=== PATIENT | male | born 2005 | race Caucasian/White ===

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

== ENCOUNTER 2025-07-24 13:27 | Outpatient (AMB) | payer OTHER, SELFPAY ==
--- NOTE | 2025-07-24 13:30 | MHC.OFFWIV ---
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 Allergies sulfamethoxazole (From BACTRIM) Allergy (Unknown, Verified 07/24/25 13:35) RASH trimethoprim (From BACTRIM) Allergy (Unknown, Verified 07/24/25 13:35) RASH Do you need a note to return to daycare/school/sports/work: No HPI HPI Comments History of Present Illness Details History of Present Illness The patient is a 19 year old male with a past medical history of gastric sleeve surgery presenting with sharp intermittent chest/abdominal pain. - The chest pain has been intermittent over the last couple of months. - Described as sharp, localized to the upper abdominal area, and radiating to the chest. - Lasts for seconds, occurs at rest, and not associated with movement, deep breaths, shortness of breath, nausea, or vomiting. - The pain occasionally worsens when lying down and is reproducible with palpation of the area. - He denies any prior cardiac history. Denies any cardiac history in mom or dad. - Experiences acid reflux particularly after consuming soda, which is distinct from the current pain. Review of Systems - Constitutional: Denies fevers or chills - Cardiovascular: Reports intermittent, sharp, shooting abdominal pain radiation to chest, denies palpitations - Respiratory: Denies associated shortness of breath. - Gastrointestinal: Denies nausea or vomiting. Denies diarrhea - Musculoskeletal: Denies pain with movement Physical Exam General Appearance: Normal appearance, well developed. No acute distress Head: Normocephalic, atraumatic Cardiac: RRR. No M/R/G. Chest pain somewhat reproducible to palpation overlying the 8th/9th rib along the left midaxillary region Pulmonary: No respiratory distress. Speaking in full sentences. Lungs are clear. Abdomen: Soft and nontender to palpation. No guarding or rigidity Musculoskeletal: Moving all extremities spontaneously and against gravity. Mental Status: Alert and Oriented x 3 Psychiatric: Normal mood. Normal affect. [facility] Social History (Updated 10/22/20 @ 14:04 by LULY Cook) Current occupational status: student Current occupation: student 9th grade Physical Exam Vital Signs: Last Vital Signs Temp 97.9 F 07/24/25 13:32 Pulse 96 07/24/25 13:32 BP 137/83 07/24/25 13:32 Pulse Ox 99 07/24/25 13:32 Oxygen Delivery Method Room Air 07/24/25 13:32 BMI result Body Mass Index 37.2 Office Procedures EKG Details: Normal sinus rhythm. No significant ST changes noted upon personal review. No prior EKG for comparison [id number], Complete Assessment & Plan Assessment & Plan (1) Chest pain: Code(s): R07.9 - Chest pain, unspecified Qualifiers: Chest pain type: unspecified Qualified Code(s): R07.9 - Chest pain, unspecified Plan - Patient presents with intermittent left upper abdominal pain radiating to the chest pain for the last few months. Reports pain lasts just for 1-2 seconds and resolves on its own. - EKG does not show any significant findings upon personal review - Discussed possible musculoskeletal etiology as pain is somewhat reproducible to palpation along the chest wall - As symptoms have been ongoing for a few months, will also obtain chest x-ray for further evaluation - Advised patient to establish with a PCP. - In the interim, discussed monitoring when pain occurs and if he notices any aggravating or alleviating factors. - Recommended prompt medical evaluation if any worsening chest pain, persistent chest pain, or trouble breathing Patient was informed and verbally consented to the use of an ambient scribe for clinic note documentation during the visit. Orders: Orders AMB EKG-In Office 07/24/25 R07.9 - Chest pain, unspecified XR chest 2V 07/24/25 R07.9 - Chest pain, unspecified Coding Level of Care Code New Pt Level 3 (54871) Diagnoses Chest pain, unspecified type R07.9 Chest pain type: unspecified CPT Codes EKG - CPT: 04746-[id number], Complete ([id number])
[2025-07-24 13:32] VITALS: BP 137/83; PULSE 96; TEMP 36.6; O2SAT 99; BMI 37.2
--- OUTSIDE RECORDS SUMMARY | 2025-07-24 17:32 | XMS_ITS | Clinical Summary ---
Author Organization [facility] Address [address] [place] [address] Care Team Providers Care Lean Manufacturing Engineer Name Role Phone Valentine Presley MD Primary Care Provider [phone] Source Comments Please note that some or all of the patient's information could have additional privacy protections. State laws allow health care providers to render certain types of treatment to minors without parental consent. Please do not assume that this information can be shared solely by obtaining just the consent of the patient's parent/guardian. Please determine if all or part of the patient's care was rendered without parent/guardian involvement. And, if so, obtain the minor's consent prior to disclosure.[facility] Allergies Active Allergy Reactions Criticality Noted Date Comments Sulfamethoxazole-Trimethop rim 09/08/2021 Other (Food) Itching,Other (See Comments) 11/26/2021 Natalio reports itching mouth throat with - apple, julio, strawberry, kiwi, banana, bosch, grapes, watermelon, blueberries, pears, pineapple. OK if cooked, such as canned pineapple or applesauce. Seasonal 11/02/2021 Sulfa (Sulfonamide Antibiotics) 09/08/2021 Sulfamethoxazole Rash Low 06/07/2022 Trimethoprim Rash Low 06/07/2022 Medications omeprazole (PRILOSEC) 40 MG capsule 10/24/2022 Active cholecalciferol, vitamin D3, 50 mcg (2,000 unit) capsuleIndicatio ns:Vitamin D deficiency Take 1 capsule (2,000 Units) by mouth daily 30 capsule 11 01/08/2025 01/09/20 26 Active multivitamin tabletIndication s:Severe obesity due to excess calories with serious comorbidity and body mass index (BMI) greater than 99th percentile for age in pediatric patient,H/O gastric sleeve Take 1 tablet by mouth daily 30 tablet 11 01/14/2025 01/15/20 26 Active Active Problems Problem Noted Date Diagnosed Date H/O gastric sleeve 07/07/2022 Decreased strength, endurance, and mobility 10/06 NAFLD (nonalcoholic fatty liver disease) 022 Severe obesity due to excess calories with serious comorbidity and body mass index (BMI) greater than 99th percentile for age in pediatric patient 10/28/2021 Acanthosis nigricans 10/28/2021 Snoring 10/28/2021 Childhood obesity, unspecifi ed BMI, unspecified obesity type, unspecified whether serious comorbidity present 09/09/2021 Elevated liver enzymes 09/09/2021 Family History Medical History Relation Name Comments Diabetes type II Maternal Grandfather Hypertension Maternal Grandfather Hyperlipidemia Maternal Grandmother Sleep apnea Maternal Grandmother Thyroid disease Maternal Grandmother Hypertension Mother Obesity Mother Sleep apnea Mother Diabetes type II Paternal Grandfather Anesthesia problems Neg Hx Bleeding disorder Neg Hx Relation Name Status Comments Maternal Grandfather Maternal Grandmother Mother Paternal Grandfather Social History Tobacco Use Types Packs/Day Years Used Date Smoking Tobacco: Never Smokeless Tobacco: Never Tobacco Cessation:Counseling Given: Not Answered Sex and Gender Information Value Date Recorded Sex Assigned at Male 06/12/2025 1:53 PM EST Legal Sex Male 12:58 PM EST Gender Identity Not on file Sexual Orientation Not on file Last Filed Vital Signs Vital Sign Reading Time Taken Comments Blood Pressure 135/79 12/25/2024 9:38 AM EDT Pulse 75 12/25/2024 9:38 AM EDT Temperature 36.5 C (97.7 F) 11/18/2022 8:24 AM EDT Respiratory Rate 16 06/03/2022 5:35 PM EDT Oxygen Saturation 99% 06/03/2022 5:35 PM EDT Inhaled Oxygen Concentration - - Weight 109.1 kg (240 lb 8.4 oz) 01/14/2025 2:25 PM EDT Height 172 cm (5' 7.72 ) 01/14/2025 2:25 PM EDT Body Mass Index 36.88 01/14/2025 2:25 PM EDT Plan of Treatment Upcoming Encounters Date Type Department Care Team (Late st Contact Info) Description 09/26/2025 9:30 AM EST Nutrition [facility], Clinical Nutrition [address] [place] [address] 12/31/2025 10:45 AM EDT Office Visit [facility] Gastroenterology, [address] [phone] Angela Hernandez APRN [address] [place], [place] [phone] 01/20/2026 11:00 AM EDT Office Visit [facility], Weight Management [address] [address] John Ryan PA [address] [place], [place] [phone] Health Maintenance Due Date Last Done Comments DTaP/TDAP/TD VACCINES (1 - Tdap) 2012 ADOLESCENT HIV SCREENING 2018 COVID-19 Vaccine ( season) 2025 01/12/2021, 12/22/2020 INFLUENZA (#1) 2025 NIRSEVIMAB VACCINES UNDER 8 MONTHS Aged Out No longer eligible b ased on patient's age to complete this topic Medical Devices Implanted Type Area Systems Design Engineer Device Identifier Shelf Expiration Date Model / Serial / Lot Tristaple 2.0 Black Reinforced - [id number] Implanted:Qty: 1 on 06/02/2022 by Della Kenyon MD at [facility] Staple N/A: Stomach COVIDIEN 11/04/2024 [id number] XT / / [id number] Tristaple 2.0 Black Reinforced - [id number] Implanted:Qty: 1 on 06/02/2022 by Della Kenyon MD at [facility] Staple N/A: Stomach COVIDIEN 09/06/2024 [id number] XT / / [id number] Insurance [facility] [employer] PLAN [facility] MEDICAID [facility] [employer] PLAN Care Teams Lean Manufacturing Engineer Relationship Specialty Start Date End Date Valentine Presley MD [address] [place] [id number] PCP - General General Pediatrics 06/21/21
--- OUTSIDE RECORDS SUMMARY | 2025-07-24 17:32 | XMS_ITS ---
Author Name [facility] Organization Unknown History of Medication Use Medication Directions Dispensed Refills Start Date End Date Stat cholecalciferol, vitamin D3, 50 mcg (2,000 unit) capsule Take 2 capsules (4,000 Units) by mouth daily 08/15/2023 12/20/2023 active cetirizine (ZYRTEC) 10 MG tablet Take 1 tablet (10 mg) by mouth daily 12/14/2022 12/15/2023 active cetirizine (ZYRTEC) 10 MG tablet Take 1 tablet (10 mg) by mouth daily 12/14/2022 12/15/2023 active omeprazole (PRILOSEC) 40 MG capsule TAKE 1 CAPSULE BY MOUTH EVERY DAY. BREAK CAPSULE APART AND MIX WITH ANY LIQUID 10/24/2022 active omeprazole (PRILOSEC) 40 MG capsule TAKE 1 CAPSULE BY MOUTH EVERY DAY. BREAK CAPSULE APART AND MIX WITH ANY LIQUID 10/24/2022 active omeprazole (PRILOSEC) 40 MG capsule Take 1 capsule (40 mg) by mouth daily Break capsule apart and mix with any liquid 06/03/2022 07/04/2022 active food supplemt, lactose-reduced (ENSURE CLEAR) liquid Take 20 oz by mouth daily Ensure Clear, mixed mccrary flavor for 7 days 05/05/2022 05/13/2022 active liraglutide (VICTOZA 2-ERIK) 0.6 mg/0.1 mL (18 mg/3 mL) injection Inject 1.8 mg into the skin daily 03/29/2022 03/29/2022 active cholecalciferol, vitamin D3, 50 mcg (2,000 unit) capsule Take 1 capsule (2,000 Units) by mouth daily 12/27/2021 03/28/2022 active ondansetron (ZOFRAN) 4 MG tablet Take 1 tablet (4 mg) by mouth every 8 (eight) hours as needed for Nausea 12/27/2021 03/02/2022 active cholecalciferol (VITAMIN D3) 25 mcg (1,000 unit) chewable tablet Take 2 tablets (2,000 Units) by mouth daily 11/26/2021 02/25/2022 active liraglutide (VICTOZA) 0.6 mg/0.1 mL (18 mg/3 mL) injection Inject 0.6 mg into the skin daily for 7 days, THEN 1.2 mg daily for 7 days, THEN 1.8 mg daily. 11/26/2021 02/09/2022 active BD ULTRA-FINE GILBERTO PEN NEEDLE 32 gauge x Needle Use as directed up to 7 times daily. 11/26/2021 active cetirizine HCl (ZYRTEC ORAL) Take by mouth active liraglutide (VICTOZA 2-ERIK) 0.6 mg/0.1 mL (18 mg/3 mL) injection Inject 1.2 mg into the skin daily active multivitamin capsule Take 1 capsule by mouth daily active multivitamin capsule Take 1 capsule by mouth daily active multivitamin capsule Take 1 capsule by mouth daily active No known medications No known medications active Allergies Allergen Reaction Severity Comment Documented Date Source Status TRIMETHOPRIM RASH 06/07/2022 [facility] active OTHER (FOOD) OTHER (SEE COMMENTS) Serene reports itching mouth throat with - apple, julio, strawberry, kiwi, banana, bosch, grapes, watermelon, blueberries, pears, pineapple. OK if cooked, such as canned pineapple or applesauce. 11/26/2021 [facility] active SEASONAL 11/02/2021 [facility] active SULFA (SULFONAMIDE ANTIBIOTICS) 09/08/2021 [facility] active SULFAMETHOXAZOLE RASH [facility] SULFAMETHOXAZOLE-TRIM ETHOPRIM [facility] Problems Problem Status Onset Date Problem Type Date of Resolution Source Dietary counseling active EncounterDiagnosisAct [facility] H/O gastric sleeve active 2022-07-07 ProblemAct [facility] H/O gastric sleeve active 2022-07-07 ProblemAct [facility] Vitamin D deficiency active EncounterDiagnosisAct [place] NAFLD (nonalcoholic fatty liver disease) active 2021-10-28 ProblemAct [facility] Childhood obesity, unspecified BMI, unspecified obesity type, unspecified whether serious comorbidity present active 2021-09-09 ProblemAct [facility] Acanthosis nigricans active 2021-10-28 ProblemAct [facility] Decreased strength, endurance, and mobility active 2021-10-28 ProblemAct [facility] Snoring active 2021-10-28 ProblemAct [facility] Elevated liver enzymes active 2021-09-09 ProblemAct [facility] Severe obesity due to excess calories with serious comorbidity and body mass index (BMI) greater than 99th percentile for age in pediatric patient active 2021-10-28 ProblemAct [facility] Encounters Encounter Type Encounter Reason Primary Diagnosis Location Date Ambulatory Acquired absence of stomach (part of) Acquired absence of stomach (part of) [facility] ([facility] 01/28/2025 Ambulatory Morbid (severe) obesity due to excess calories Morbid (severe) obesity due to excess calories [facility] 01/14/2025 Ambulatory Fatty (change of) liver, not elsewhere classified Fatty (change of) liver, not elsewhere classified [facility] 12/25/2024 Ambulatory Vitamin D deficiency, unspecified Vitamin D deficiency, unspecified [facility] 12/20/2023 Ambulatory Obesity Obesity [facility] 08/11/2023 Ambulatory Obesity, unspecified Obesity, unspecified [facility] 07/11/2023 Ambulatory Obesity, unspecified Obesity, unspecified [facility] 07/11/[address] [facility] 01/13/[address] [facility] 11/18/[address] [facility] 11/08/[address] [facility] 11/01/[address] [facility] 07/12/[address] [facility] 07/06/[address] [facility] 06/28/[address] [facility] 06/24/[address] [facility] 06/01/[address] [facility] 05/30/[address] [facility] 05/18/[address] [facility] 05/12/[address] [facility] 05/11/[address] [facility] 05/06/[address] [facility] 05/05/[address] [facility] 05/05/[address] [facility] 04/25/[address] [facility] 03/29/[address] [facility] 03/22/[address] [facility] 03/17/[address] [facility] 03/15/[address] [facility] 03/02/[address] [facility] 02/16/[address] [facility] 02/03/[address] [facility] 02/02/[address] [facility] 12/22/[address] [facility] 12/21/[address] [facility] 12/03/[address] [facility] 11/30/[address] [facility] 11/29/[address] [facility] 11/26/[address] [facility] 11/26/[address] [facility] 09/13/2021 Care Team Organization Name Specialty Phone Email Start Date End Da te [facility] IJEOMA DENISE Primary Care 07/11/2023 [facility] ([facility] IJEOMA ROUNDS Primary Care 023 07/11/2023 [facility] IJEOMA DENISE Primary Care 11/21/2022 [facility] IJEOMA DENISE Primary Care 07/07/2022
--- OUTSIDE RECORDS SUMMARY | 2025-07-24 17:33 | XMS_ITS | Clinical Summary ---
Author Organization [facility] Address [address] [place] [address] Phone Care Team Providers Care Rehab Aide Name Role Phone Physician, No Pcp Primary Care Provider Unavaila ble Allergies Active Allergy Reactions Criticality Noted Date Comments Sulfamethoxazole-Trimethoprim Rash 2024 Sulfa (Sulfonamide Antibiotics) Rash 09/08 Medications No known medications Surgical History Surgery Date Site/Laterality Comments GASTRIC BYPASS Social History Tobacco Use Types Packs/Day Years Used Date Smoking Tobacco: Never Smokeless Tobacco: Never Tobacco Cessation:Counseling Given: Not Answered Sex and Gender Information Value Date Recorded Sex Assigned at Not on file Legal Sex Male 1:39 PM EDT Gender Identity Not on file Sexual Orientation Not on file Growth Chart Information Age Height Weight [id number] th Percentile BMI Percentile Head Circum Head Circum Percentile Date 19 years 170.2 cm (5' 7.01 ) 102 kg (225 lb) 97.85%* 2024 18 years 170.2 cm (5' 7.01 ) 102 kg (225 lb) 97.87%* 2024 18 years 170.2 cm (5' 7 ) 102 kg (225 lb) 97.88%* 2024 * [facility] (Boys, 2-20 Years) Last Filed Vital Signs Vital Sign Reading Time Taken Comments Blood Pressure 129/64 09/28/2024 3:34 PM EST Pulse 96 09/28/2024 3:34 PM EST Temperature 36.9 C (98.4 F) 09/28/2024 3:34 PM EST Respiratory Rate 18 09/28/2024 3:34 PM EST Oxygen Saturation 100% 09/28/2024 3:34 PM EST Inhaled Oxygen Concentration - - Weight 102 kg (225 lb) 10/16/2024 2:40 PM EDT Height 170.2 cm (5' 7.01 ) 10/16/2024 2:40 PM ED T Body Mass Index 35.23 10/16/2024 2:40 PM EDT Plan of Treatment Health Maintenance Due Date Last Done Comments Meningococcal B Vaccine (1 of 2 - Standard) 2021 HIV Screening 03/08/2024 Hepatitis C Screening 03/08/2024 Social Influencers of Health Screening 03/08/2024 Depression Screening 08/07/2024 Annual Well Child Visit (3-21 years old) 11/30/2024 12/01/2023, 09/09/2022, 06/08/2021, Additional history exists COVID-19 Vaccine ( - season) 2025 01/12/2021, 12/22/2020 Influenza Vaccine (#1) 2025 , 06/08/2021, 05/25/2020, Additional history exists DTaP,Tdap,and Td Vaccines (7 - Td or Tdap) 05/02/2027 05/02/2017, 12/07/2010, 01/10/2007, Additional history exists RSV Immunization Adult Patients (1 - 1-dose 75+ series) 2080 Hepatitis B Vaccines Completed 04/06/2006, 02/09/2006, 2005 HIB Vaccines Completed 01/10/2007, 03/09, 02/09/2006, Additional history exists Pneumococcal Vaccine: Pediatrics (0 to 5 Years) and At-Risk Patients (6 to 49 Years) Completed 01/10/2007, 04/06/2006, 02/09/2006, Additional history exists Hepatitis A Vaccines Completed 04/30/2007, 10/04/19 07 IPV Vaccines Completed 12/07/2010, 03/09, 02/09/2006, Additional history exists MMR Vaccines Completed 12/07/2010, 09/08, 10/04/2006 Varicella Vaccines Completed 12/07/2010, 10/04/2006 HPV Vaccines Completed 05/07/2018, 05/02/2017 Meningococcal ACWY Vaccine Completed 09/09/2022, RSV Immunization Patients Under 20 months Aged Out No longer eligible based on patient's age to complete this topic Insurance Care Teams Rehab Aide Relationship Specialty Start Date End Date Physician, No Pcp PCP - General 09/28/24
--- OUTSIDE RECORDS SUMMARY | 2025-07-24 17:33 | XMS_ITS | Encounter Summary ---
Author Organization [facility] Address [address] [place] [address] Phone Care Team Providers Care Nurse Paralegal Name Role Phone Valentine Presley MD Primary Care Provider [phone] Encounter Details Date Type Department Care Team (Late st Contact Info) Description 03/23/2017 Conversion Encounter [facility] [address] [place] [address] Social History Tobacco Use Types Packs/Day Years Used Date Smoking Tobacco: Never Comments:Never smoker Sex and Gender Information Value Date Recorded Sex Assigned at Not on file Legal Sex Male 5:09 PM EDT Gender Identity Male 11/19/2023 2:13 PM EDT Sexual Orientation Straight 09/09/2022 2: 22 PM EST documented as of this encounter Plan of Treatment Not on file documented as of this encounter Visit Diagnoses Not on filedocumented in this encounter Care Teams Nurse Paralegal Relationship Specialty Start Date End Date Valentine Presley MD [address] [place] [address] PCP - General Pediatrics 02/06/19 documented as of this encounter
--- OUTSIDE RECORDS SUMMARY | 2025-07-24 17:33 | XMS_ITS | Clinical Summary ---
Author Organization [facility] Address [address] [place] [address] Phone Care Team Providers Care Security Nurse Name Role Phone Valentine Presley MD Primary Care Provider [phone] Allergies Active Allergy Reactions Criticality Noted Date Comments Cholestatin 11/02/2021 Sulfamethoxazole Rash Low Sulfamethoxazole-Trimethoprim Hives 2021 Trimethoprim Rash Low Medications Multiple Vitamins-Minera ls (MULTIVITAMIN ADULT EXTRA C PO) Take 1 capsule by mouth daily. Active M-PAP 160 MG/5ML liquid TAKE 31.25ML BY MOUTH EVERY 6 HOURS FOR 10 DAYS 06/03/2022 Active omeprazole 40 MG capsule 07/15/2022 Active cholecalciferol 50 MCG (2000 UT) capsule Take 4,000 Units by mouth daily. 08/15/2023 Active Active Problems Problem Noted Date Diagnosed Date Phimosis 12/01/2023 Overview (12/01/2023): 12/01/2023 (age 18yr): Urology referral Assessment & Plan (12/01/2023 11:26 AM EDT): 12/01/2023 (age 18yr): Urology referral H/O gastric sleeve 07/07/2022 NAFLD (nonalcoholic fatty liver disease) 021 Overview (12/26/2024): 09/09/2022 (age 16yr 11mo): See problem of obesity for details. NAFLD with liver fibrosis. Followed closely by [facility] weight management program - Last Specialist Visit: 12/21/2023 (age 18yr): [facility] Jan is a 18 y.o. 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 Since undergoing sleeve gastrectomy in 2021 he has had a significant reduction in his BMI, which is reflected in the normalization of his liver enzymes and improved Fibroscan findings. ' Follow up 1 year. 12/25/2024 [facility] GI Fibroscan showed significant increase in fatty change. Follow up with weight managemet, continue with healthy choices. Detailed History and Chronology of care: 06/10/2021 (age 15yr 8mo): ALT 152. Likely fatty liver (NAFLD). Will check ultrasound and then refer to NAFLD clinic at [facility] or [facility]. 06/18/2021 (age 15yr 8mo): Liver U/S confirms fatty liver. Referred to NAFLD clinic today. . 09/21/2021: MR elastography shows Mean liver stiffness of 3.1 kPa consistent with Stage 1 to 2 Fibrosis. Referred to weight management by GI. 12/18/2021 (age 16yr 2mo): Normal biliary ultrasound 03/14/2022: Continues to follow with liver clinic at [facility] Assessment & Plan (09/09/2022 5:39 PM EST): 09/09/2022 (age 16yr 11mo): See problem of obesity for details. NAFLD with liver fibrosis. Followed closely by [facility] weight management program Assessment & Plan (06/18/2021 10:47 AM EST): 06/18/2021 (age 15yr 8mo): Liver U/S confirms fatty liver. Referred to NAFLD clinic today. Assessment & Plan (06/10/2021 5:22 PM EDT): 06/10/2021 (age 15yr 8mo): ALT 152. Likely fatty liver (NAFLD). Will check ultrasound and then refer to NAFLD clinic at [facility] or [facility]. 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 Detailed History and Chronology of care: 06/10/2021 (age 15yr 8mo): Insulin 50.8, nl HGB A1C. Was referred to weight management at recent well visit. Assessment & Plan (12/01/2023 12:18 PM EDT): 12/01/2023 (age 18yr): See problem of obesity for details, followed closely by [facility] weight management. Assessment & Plan (09/09/2022 5:40 PM EST): 09/09/2022 (age 16yr 11mo): See problem of obesity for details, followed closely by [facility] weight management. Borderline high cholesterol 06/10/2021 Overview (09/09/2022): 09/09/2022 (age 16yr 11mo): See problem of obesity for details. Followed closely by [facility] weight management Assessment & Plan (12/01/2023 12:18 PM EDT): 12/01/2023 (age 18yr): See problem of obesity for details. Followed closely by [facility] weight management Assessment & Plan (09/09/2022 2:13 PM EST): 09/09/2022 (age 16yr 11mo): See problem of obesity for details. Followed closely by [facility] weight management Seasonal allergic rhinitis due to pollen 021 Overview (11/03/2023): - Last Specialist Visit: 10/25/2023 DYLAN Negrete. Oral allergy syndrome, environmental allergies. Rx epipen, zyrtec, nasacort. Start immunotherapy. FU 6 months (05/2024) Assessment & Plan (12/01/2023 12:18 PM EDT): - Last Specialist Visit: 10/25/2023 DYLAN Negrete. Oral allergy syndrome, environmental allergies. Rx epipen, zyrtec, nasacort. Start immunotherapy. FU 6 months (05/2024) Assessment & Plan (12/23/2020 5:31 PM EDT): See meds. Call if they make you tired. Keep his/her bedroom dust free: 1. Wash and dry any stuffed animals or Give them a vacation in sealed plastic bags for a week 2. Use only foam pillows 3. Wash all bed linens, including bedspread, weekly 4. Avoid floor to ceiling heavy curtains. 5. Wash any curtains or blinds there 6. Try to avoid wall to wall carpeting 7. Vacuum your home weekly with a HEPA filter 8. No cats, or dogs in the room. Best to Have no cats at all in the home ): 9. Use clean air conditioners; for whole house Ac, make sure ducts are clean 10. Consider air purifiers ([employer] makes Good reasonably priced models) 11. Have child wash hands and face a lot 12. Baking soda compresses work great on Itchy eyes. Concerned about having social problem 11/13/2020 Overview (11/13/2020): 11/13/2020 (age 15yr 1mo): DCF involved Oral allergy syndrome 05/10/2019 Overview (12/01/2023): 12/01/2023 (age 18yr): : Feels like throat is closing when he eats certain foods: cherries, oranges, apples, honeydew, watermelon. - Last Specialist Visit: 10/25/2023 DYLAN Negrete. Oral allergy syndrome, environmental allergies. Rx epipen, zyrtec, nasacort. Start immunotherapy. FU 6 months (05/2024) Detailed History and Chronology of care: 06/18/19: Apt with DYLAN, could not allergy test due to insurance issues, but will return for testing. 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 05/25/2020 (age 14 yr 7 mo): pt overslept and didn't make it to the follow up appointment. 06/08/2021 (age 15yr 8mo): Will plan to reschedule to with the accordion maker. Assessment & Plan (12/01/2023 12:17 PM EDT): 12/01/2023 (age 18yr): : Feels like throat is closing when he eats certain foods: cherries, oranges, apples, honeydew, watermelon. - Last Specialist Visit: 10/25/2023 DYLAN Negrete. Oral allergy syndrome, environmental allergies. Rx epipen, zyrtec, nasacort. Start immunotherapy. FU 6 months (05/2024) Assessment & Plan (09/09/2022 4:47 PM EST): 09/09/2022 (age 16yr 11mo): Feels like throat is closing when he eats certain foods: cherries, oranges, apples, honeydew, watermelon. Initial allergy appt 05/2020, still need to follow up. Will plan to schedule. Referral placed again Assessment & Plan (06/08/2021 1:43 PM EDT): 06/08/2021 (age 15yr 8mo): Feels like throat is closing when he eats certain foods: cherries, oranges, apples, honeydew, watermelon. Initial allergy appt 05/2020, still need to follow up. Will plan to schedule. Assessment & Plan (12/23/2020 5:30 PM EDT): Avoid raw pitted fruits with skins for now. Follow up with dr. presley Assessment & Plan (05/25/2020 10:59 AM EDT): eels like throat is closing when he eats certain foods: cherries, oranges, apples, honeydew, watermelon. Refer to allergiest. 06/18/19: Apt with DYLAN, could not allergy test due to insurance issues, but will return for testing. 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 05/25/2020 (age 14 yr 7 mo): pt overslept and didn't make it to the follow up appointment. Pt to call for appt. Obesity 05/02/2017 Overview (02/05/2025): 12/01/2023 (age 18yr) - 02/05/25 Followed closly by [facility] weight management clinic. 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 S/p Bariatric surgery 05/2022. NAFLD improving. Detailed History and Chronology of care: 06/10/2021 (age 15yr 8mo): Severe obesity. Elevated ALT, hyperinsulinemia, borderline cholesterol (see individual problems) [facility] weight management not taking new pts. Mom will call [facility] and let me know how it goes. 09/21/2021: MR elastography shows Mean liver stiffness of 3.1 kPa consistent with Stage 1 to 2 Fibrosis. Referred to weight management by GI at [facility]. 11/17/2021: Sleep study normal. 11/26/2021: [facility] weight management is Starting Liraglutide injections for weight loss. 03/07/2022: Stress test normal, continues with weight management at [facility], likely will have bariatric surgery in 3-4 months. 06/02/2022: Had bariatric surgery at [facility] 12/14/2022 [facility] irina CASTRO improved - fibrosis from stage 1-2 to 0-1. Assessment & Plan (12/01/2023 12:17 PM EDT): 12/01/2023 (age 18yr): Followed closly by [facility] weight management clinic. 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 S/p Bariatric surgery 05/2022. NAFLD improving. Assessment & Plan (09/09/2022 5:39 PM EST): 09/09/2022 (age 16yr 11mo): Followed closly by [facility] weight management clinic. 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 S/p Bariatric surgery 05/2022. Assessment & Plan (06/10/2021 5:25 PM EDT): 06/10/2021 (age 15yr 8mo): Severe obesity. Elevated ALT, hyperinsulinemia, borderline cholesterol (see individual problems) [facility] weight management not taking new pts. Mom will call [facility] and let me know how it goes. Assessment & Plan (06/08/2021 1:44 PM EDT): 06/08/2021 (age 15yr 8mo): Severe obesity, referred to weight management again. Check labs. Discussed diet/exercise. Assessment & Plan (01/01/2021 12:48 PM EDT): 01/01/2021 (age 15yr 3mo): Weight is up 4 lbs since 12/23. Natalio reports stress eating related to school. He finds it hard to wake up. He reports that he is snacking but not as much as he used to. He snacks on chips. Drinks soda 2 cans per day. Over eating. Natalio plays basketball but hasn't been playing as much since the family moved to [facility]. Has opportunity to play 2 days per week. 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 He thinks he might be able to start walking. Natalio would like to go to the weight management clinic. - check labs today Assessment & Plan (12/23/2020 5:28 PM EDT): Now up to 320 lbs,please see Dr. Presley for consult for weight loss. Also will refer to Maris Villafana RD Assessment & Plan (05/25/2020 10:56 AM EDT): 05/25/2020 (age 14 yr 7 mo): BMI increasing still. 43 to 46.7. He is feeling down about about his weight, wants to get to a gym to work on it. Feeling unable to exercise during the covid 19 pandemic. Encouraged focusing on activities that are available (walking, home workouts etc) Assessment & Plan (08/22/2019 2:16 PM EST): D/w pt- did not follow through with [facility] program but would be really interested if they still do the free family membership or at least if he and dad could have a free membership I called [facility] to check on this- KT will call Y and confirm and give mom a call Assessment & Plan (05/02/2017 3:39 PM EDT): Will screen for diabetes, hypothyroid, and hyperlipidemia. Refer to weight management Resolved Problems Problem Noted Date Diagnosed Date Resolved Date Elevated blood pressure reading 01/01/2021 12/01/2023 Overview (09/09/2022): 09/09/2022 (age 16yr 11mo): BP normal today. See problem of obesity for details, followed closely by [facility] weight management. Detailed History and Chronology of care: 01/01/2021 (age 15yr 3mo): noted today, follow up 2-3 weeks. 06/08/2021 (age 15yr 8mo): High BP again today, follow up 2-3 weeks. Assessment & Plan (09/09/2022 5:40 PM EST): 09/09/2022 (age 16yr 11mo): BP normal today. See problem of obesity for details, followed closely by [facility] weight management. Assessment & Plan (01/01/2021 12:49 PM EDT): 01/01/2021 (age 15yr 3mo): noted today, follow up 2-3 weeks. Tinea versicolor 05/10/2019 05/25/2020 Overview (05/10/2019): Ketoconazole cream BID x 2 weeks. To Derm INB. Also consider pityriasis alba. Assessment & Plan (05/25/2020 10:58 AM EDT): Has had treatment x 2, both times resolved. Assessment & Plan (08/22/2019 2:18 PM EST): Had ketoconazole cream rx'ed in the past and the rash cleared- but back again now req RF- sent Advised use for 2-4 weeks Wheeze 05/07/2019 09/09/2022 Overview (05/25/2020): And chest pain with URI 12/2018. Seen in ED - CxR and EKG nl. Rx'd prednisone and albuterol at follow up here. 05/10/19: Has been fine since then 05/25/2020 (age 14 yr 7 mo): no issues with wheeze since that time. Will resolved problem today. Assessment & Plan (05/25/2020 10:57 AM EDT): Wheeze with chest pain with URI 12/2018. Seen in ED - CxR and EKG nl. Rx'd prednisone and albuterol at follow up here. 05/10/19: Has been fine since then 05/25/2020 (age 14 yr 7 mo): no issues with wheeze since that time. Encounters Date Type Department Care Team Description 05/14/2025 Telephone [facility] [address] [place] [address] Valentine Presley MD Nutrition Form from Last 3 Months Immunizations Immunization Administration Dates Next Due COVID-19 Pfizer, monovalent, 12+ years 1,12/22/2020 DTaP 12/07/2010, 7,04/06/2006,02/09,2005 HPV Vaccine 9 Valent 05/07/2018,05/02/2017 Hep A, ped/adol 04/30/2007,10/04/2006 Hep B, ped/adol 04/06/2006,02/09/2006,2005 HiB 01/10/2007,04/06/2006,02/09/2006 Hib (PRP-T) 2005 IPV 12/07/2010, 6,02/09/2006,12/01 Influenza, injectable, quadr ivalent, preservative free 09/09/2022,06/08/2021,05/25/2020,05/10,05/07/2018,04/27/2016,04/17/2015 ,10/10/2008 Influenza, injectable, trivalent 10/15/2009,08/2008 Influenza, injectable,josefa valent, preservative free, pediatric 04/30/2007,08/08/2006,07/06/2006 MMR 12/07/2010,10/04/2006 MMRV 10/04/2006 Meningococcal Conj (Menactra) MCV4P 05/02/2017 Meningococcal Conj (Menquadfi) [id number] 09/09/2022 Pneumococcal Conjugate 01/10/2007,2005,02/09/2006,12/01 Tdap 05/02/2017 Varicella 12/07/2010 Family History Medical History Relation Name Comments Asthma Brother Diabetes Maternal Grandfather Rick Heart disease (Premature) Maternal Grandfather Rick Hyperlipidemia Maternal Grandfather Rick Asthma Maternal Grandmother Relation Name Status Comments Brother Maternal Grandfather Rick Alive Maternal Grandmother Mother Ada Alive Social History Tobacco Use Types Packs/Day Years Used Date Smoking Tobacco: Never Smokeless Tobacco: Never Comments:Never smoker Hunger/Food Answer Date Recorded In the last 12 months, did y ou or your family ever eat less than you felt you should because there wasn't enough money for food? No 12/01/2023 Stable Housing Answer Date Recorded Are you worried that in the next 2 months you may not have stable housing? No 12/01/2023 Transportation Concerns Answer Date Rec orded In the last 12 months, have you or your family ever had to go without healthcare because you didn't have a way to get there? No 12/01/2023 Hazards in Home Answer Date Recorded Think about the place you li ve. Do you have problems with any of the following? Pests (mice or roaches), mold, no/not working smoke detectors, water leaks, no window guards. No 2023 Financing Utilities Answer Date Recorde d In the last 12 months, has t he electric, gas, oil, or water company threatened to shut off your services in your home? No 12/01/2023 Safety at Home Answer Date Recorded Are you or your family worried about feeling saf e in your home? No 12/01/2023 Outside Support Answer Date Recorded Do you feel that you need mo re support from other people or programs to help you care for yourself or your family? No 12/01/2023 Understanding Health Concerns Answer Da te Recorded Do you need help understandi ng your or your child's healthcare needs (diagnosis, medications, plan, etc.)? No 12/01/2023 Financing Health Concerns Answer Date R ecorded In the last 12 months, was t here a time when your child needed to see a doctor or get medications or supplies but could not because of cost? No 12/01/2023 Missing School or Work Answer Date Wisam rded Did you or your child miss s chool or work because of a health problem that could have been avoided? No 12/01/2023 Child Education Answer Date Recorded Do you have concerns about y our/your child's learning or behavior in school, preschool, or daycare? No 12/01/2023 Sex and Gender Information Value Date Recorded Sex Assigned at Not on file Legal Sex Male 5:09 PM EDT Gender Identity Male 11/19/2023 2:13 PM EDT Sexual Orientation Straight 09/09/2022 2: 22 PM EST Last Filed Vital Signs Vital Sign Reading Time Taken Comments Blood Pressure 117/74 12/01/2023 10:48 AM EDT Pulse 87 12/01/2023 10:48 AM EDT Temperature 36.7 C (98 F) 08/16/2023 3:04 PM EST Respiratory Rate 20 05/10/2019 3:08 PM EDT Oxygen Saturation 100% 07/20/2022 4:13 PM EST Inhaled Oxygen Concentration - - Weight 95 kg (209 lb 6.4 oz) 12/01/2023 10:48 AM EDT Height 172 cm (5' 7.72 ) 12/01/2023 10:48 AM EDT Body Mass Index 32.11 12/01/2023 10:48 AM EDT Body Mass Index Percentile 96.74% 12/01/2023 10: 48 AM EDT Growth Chart: CDC (Boys, 2-2 0 Years) Plan of Treatment Health Maintenance Due Date Last Done Comments Men B Vaccine (1 of 2 - Standard) 2021 Influenza Vaccines (#1) 2025 09/09/19 23, 06/08/2021, 05/25/2020, Additional history exists COVID-19 Vaccine (3 - 2024-2 6 season) 2025 01/12/2021, 12/22/2020 DTaP,Tdap,and Td Vaccines (7 - Td or Tdap) 05/02/2027 05/02/2017, 12/07/2010, 01/10/2007, Additional history exists Hepatitis B Vaccines Completed 04/06/2006, 02/09/2006, 2005 HIB Vaccines Completed 01/10/2007, 03/09, 02/09/2006, Additional history exists Pneumococcal Vaccine Completed 01/10/2007, 04/06/2006, 02/09/2006, Additional history exists Hepatitis A Vaccines Completed 04/30/2007, 10/04/19 07 IPV Vaccines Completed 12/07/2010, 03/09, 02/09/2006, Additional history exists MMR Vaccines Completed 12/07/2010, 09/08, 10/04/2006 Varicella Vaccines Completed 12/07/2010, 10/04/2006 HPV Vaccines Completed 05/07/2018, 05/02/2017 Meningococcal Vaccine Completed 09/09/2022, 017 Insurance [facility] NON P[facility] Care Teams Security Nurse Relationship Specialty Start Date End Date Valentine Presley MD [address] [place] [id number] PCP - General Pediatrics 02/06/19
--- OUTSIDE RECORDS SUMMARY | 2025-07-24 17:33 | XMS_ITS | Encounter Summary ---
Author Organization [facility] Address [address] [place], [place] [address] Phone Care Team Providers Care Base Wad Operator Adjuster Name Role Phone Valentine Presley MD Primary Care Provider [phone] Encounter Details Date Type Department Care Team (Late st Contact Info) Description 2016 Documentation [facility] Family Medicine [address] [place] [address] Family Medicine, Physician [address] [place], [place] [id number] Social History Tobacco Use Types Packs/Day Years [...] on filedocumented in this encounter Care Teams Base Wad Operator Adjuster Relationship Specialty Start Date End Date Valentine Presley MD [address] [place] [address] PCP - General Pediatrics 02/06/19 documented as of this encounter
== END 2025-07-24 14:30 | disposition home or self-care (01) ==
LOC: HO.HMCWIS 13:27
PROVIDERS: PCP Physician Assistant Medical; Visit Provider Family Medicine
DX: R07.9 Chest pain, unspecified (principal)

== ENCOUNTER → 2025-07-24 13:27 | Outpatient (BNVA) | payer OTHER, SELFPAY | PROVIDERS: PCP Student in an Organized Health Care Education/Training Program; Visit Provider Family Medicine | DX: R07.9 Chest pain, unspecified (principal); R10.9 Unspecified abdominal pain; Z98.84 Bariatric surgery status | CPT/HCPCS: 93005 ==

== ENCOUNTER 2025-07-25 11:02 | Outpatient (AMB) | payer OTHER, SELFPAY ==
--- NOTE | 2025-07-25 11:05 | A.OFFPC_ITS ---
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 Accompanied by: Self / Same As Patient Allergies sulfamethoxazole (From BACTRIM) Allergy (Unknown, Verified 07/25/25 11:26) RASH trimethoprim (From BACTRIM) Allergy (Unknown, Verified 07/25/25 11:26) RASH Medication List - Last Reconciled 07/25/25 by Tracey Leon PA-C ibuprofen 600 mg PO Q8H PRN loratadine 10 mg PO DAILY PRN multivitamin with folic acid 400 mcg (Daily-Alfredito (with folic acid)) 1 tab PO DAILY triamcinolone acetonide 2 sprays intranasal DAILY Tobacco use date assessed: 07/25/25 Dental Screening Dental Screen Date: 07/25/25 Did you have a dental visit in the last 12 months?: No Did you have a dental problem in the last 6 months where you did not have access to dental care?: No HPI HPI Comments History of Present Illness Details History of Present Illness The patient is a 19 year old male presenting for a new patient visit, annual physical examination and in addition for evaluation of left upper quadrant abdominal pain. He reports intermittent, random, and fast pain in the left upper quadrant that shoots up toward his chest but not his shoulder, which has been occurring for a few months. For this symptom, he was seen at a walk-in clinic where an EKG was performed and found to be normal. The patient has a history of gastric surgery performed in [place], but he has not followed up with his surgeon regularly. He reports that he was advised to take a multivitamin daily due to the surgery but has been inconsistent with it, and he has been feeling very tired. He also reports feeling cold in his feet and ears. He experiences some shortness of breath when going up stairs, which he attributes to not working out much, and denies shortness of breath when lying flat. Social History - Exercise: Patient reports he does not work out much, though he did play basketball recently. - Nutrition: Based on his lipid panel, h is diet appears to be low in fried, fatty, and sweet foods. - Travel: Recently traveled to [facility] with his family. [facility] Medical History (Updated 07/25/25 @ 13:05 by Tracey Leon PA-C) Healthcare maintenance Fatigue Annual physical exam Cold extremities Varicose veins of both lower extremities B12 deficiency Vitamin D deficiency Abdominal pain LUQ abdominal pain General medical exam Surgical History History of gastric bypass Family History Father Pre-diabetes Mother BP (high blood pressure) Social History Housing: House Patient Tobacco Use Status: Never used Tobacco service: No Current occupational status: employed Current occupation: [employer] [place] Cognitive needs: No Hearing needs: No Vision needs: Yes (Rx glasses) Questionnaire PHQ-9 Over the last 2 weeks, how often have you been bothered by any of the following problems? 1. Little interest or pleasure in doing things: not at all 2. Feeling down, depressed, or hopeless: not at all 3. Trouble falling or staying asleep, or sleeping too much: not at all 4. Feeling tired or having little energy: not at all 5. Poor appetite or overeating: not at all 6. Feeling bad about yourself - or that you are a failure or have let yourself or your family down: not at all 7. Trouble concentrating on things, such as reading the newspaper or watching television: not at all 8. Moving or speaking so slowly that other people could have noticed. Or the opposite - being so fidgety or restless that you have been moving around a lot more than usual: not at all 9. Thoughts that you would be better off or of hurting yourself in some way: not at all Total score: 0 Depression Screening Interpretation: Negative Depression Screening Done: Yes 32765 - PHQ-9 Billing: Yes Source: Developed by Drs. Brett Miramontes, Kellee Jones, Frantz Smith and colleagues, with an educational hilario from [employer]. Thrive Questionnaire Date Thrive assessed: 07/25/25 I am a: Patient What is your living situation today?: I have a steady place to live Within the past 12 months, did the food you bought not last and you didn't have the money to get more?: Never true Within the past 12 months, did you worry whether your food would run out before you got money to buy more?: Never true Do you have trouble paying for medicines?: No Do you have trouble getting transportation to medical appointments?: No Do you have trouble paying your heating and electricity bill?: No Do you have trouble taking care of your child, family member or friend?: No Do you have trouble with day-to-day activities such as bathing, preparing meals, shopping, managing finances, etc.?: No Are you currently unemployed and looking for a job?: No Are you interested in more education?: No Please select the resources that you would like help with: None THRIVE Score: 0 AUDIT C Alcohol Use Questionnaire (AUDIT-C) 1. How often do you have a drink containing alcohol?: Never 3. How often do you have six or more drinks on one occasion?: Never Total Score: 0 Score Reviewed/Action Taken: No MARTIN-7 AMB Questionnaire MARTIN-7 Date MARTIN - 7 assessed: 07/25/25 Feeling nervous, anxious, or on edge: 0 = Not at all Not being able to stop or control worryin = Not at all Worrying too much about different things: 0 = Not at all Trouble relaxin = Not at all Being so restless that it is hard to sit still: 0 = Not at all Becoming easily annoyed or irritable: 0 = Not at all Feeling afraid as if something awful might happen: 0 = Not at all Total MARTIN-7 score (0-4 normal; 5-9 mild; 10-14 moderate; 15-21 severe): 0 Source: Developed by Drs. Brett Miramontes, Kellee Jones, Frantz Smith and colleagues, with an educational hilario from [employer]. MARTIN-7 Assessment Billing MARTIN-7 Assessment Tool: MARTIN-7 Assessment 69912 Review of Systems Narrative Review of Systems - Constitutional: Reports significant fatigue. - Gastrointestinal: Reports intermittent, random, sharp pain in the left upper quadrant that shoots upward, lasting for a few seconds, for the past few months. - Cardiovascular: Denies chest pain or shortness of breath when lying flat. - Respiratory: Reports a little shortness of breath with exertion, such as climbing stairs, which he attributes to deconditioning. - Neurologic/Vascular: Reports feeling cold in his feet and ears. Const All systems reviewed & are unremarkable except as noted in HPI and below Physical exam (Primary Care) Vital Signs: Last Vital Signs Temp 97.6 F 07/25/25 11:13 Pulse 85 07/25/25 11:13 Resp 14 07/25/25 11:13 BP 123/60 07/25/25 11:13 Pulse Ox 96 07/25/25 11:13 Oxygen Delivery Method Room Air 07/25/25 11:13 Care Plan Goal for BP management: <140/90 at Goal BMI result Body Mass Index 37.9 BMI Assessment/Plan discussion: High BMI High, discussed plan: lifestyle, weight reduction, dietary, physical activity, alcohol moderation and other Tobacco/Smoking Status: Tobacco use Status Tobacco use date assessed 07/25/25 07/25/25 11:21 Patient Tobacco Use Status Never used Tobacco 07/25/25 11:21 PHQ-9: PHQ-9 Score PHQ-9: Total score 0 07/25/25 13:06 Depression Screening Interpretation: Negative Thrive Assessment: Date of Thrive Assessment Date Thrive assessed 07/25/25 07/25/25 11:21 Narrative Physical Exam Appearance: Alert. Oriented X3. No acute distress. Head: Normal external exam. Normocephalic. Atraumatic. Eyes: Pupils are equal, round, and reactive to light. Extraocular movements intact. Conjunctiva and sclera normal. Eyelids normal. Ears: External auditory canal normal. Tympanic membranes normal. Throat: Pharynx normal. Uvula midline. Moist mucous membranes. Neck: Normal inspection. Neck supple. Full range of motion. No adenopathy. Thyroid Normal. No meningeal signs. No neck mass noted. Cardiovascular: Normal heart rate and rhythm. Heart sound normal. No murmurs noted. Pulses normal throughout. Respiratory: No respiratory distress. Painless inspiration. Breath sounds normal. No wheezes/rales/rhonchi noted. Chest nontender. No accessory muscle usage noted or decreased air movement noted. Abdomen: Soft and mild tenderness to palpation to the left upper quadrant/epigastric area. Bowel sounds normal in all 4 quadrants. No distention noted. No organomegaly noted. No visible injury noted. Left upper quadrant pain noted. Back: No costovertebral angle tenderness. Full range of motion noted. Skin: Skin warm and dry. Normal skin color. Normal skin turgor. No rashes/lesions/lacerations noted. Extremities: No lower extremity edema. Extremities exhibit normal range of motion. Extremities nontender. Coldness of extremities noted. Some varicose veins present. Neuro: Oriented X 3. No motor deficit. No sensory deficit. Reflexes normal. Office Procedures Flu Questionnaire Does the patient have a severe egg allergy?: No Does the patient have severe life threatening allergies?: No Does the patient have a fever or illness today?: No Has the patient ever had Guillain-Scio Syndrome?: No Has the patient ever had any past reaction to a flu shot?: No Office Meds cyanocobalamin (vitamin B-12) 1,000 mcg/mL injection solution Performing Provider: Tracey Leon PA-C [place] [facility] [facility] Administered by: Tracey Leon PA-C on 07/25/25 11:58 Dose Route Admin Location Dispensed Lot Number Expiration Date [facility] Certified Lactation Educator 1,000 mcg IM Left deltoid 1 mL [id number] 10/04/26 2122-0182-14 [facility] Total Dispensed Waste 1 mL 0 % Immunizations Fluarix [id number] (PF) 45 mcg (15 mcg x 3)/0.5 mL IM syringe Performing Provider: Tracey Leon PA-C Performing [place] [facility] [facility] Administered by: JEB Patterson on 07/25/25 13:06 Dose Route Admin Location Dispensed Lot Number Expiration Date [facility] Certified Lactation Educator 0.5 mL IM Right Deltoid 0.5 mL [id number] 02/03/26 [id number] [employer] VIS Given Date VIS Provided VIS Publication Date 07/25/25 Single Vaccine 24 Eligibility Eligibility Date Funding Source Not [facility] Eligible 07/25/25 Private Results Reviewed Results Reviewed: Results - Labs: - CBC: Within normal limits; white blood cell count is not elevated, and there i s no anemia. - Comprehensive Metabolic Panel (CMP): Kidney function is normal. One liver enzyme was slightly elevated, but AST, ALT, and alkaline phosphatase were normal. - Hemoglobin A1c: 4.7%. - Lipid Panel: Triglycerides 51 mg/dL, total cholesterol 152 mg/dL, LDL 85 mg/dL, HDL 57 mg/dL. - Inflammatory Markers: C-reactive protein (CRP) is normal. Erythrocyte sedimentation rate (ESR) is 5. - Total Creatine Kinase (CK): Slightly elevated. - Vitamin D: Low. - Vitamin B12: 306 pg/mL, which is on the low side of normal. - Prostate-Specific Antigen (PSA): Negative. - Urinalysis: Normal, with no blood. - Pending labs: Amylase, lipase, folate, vitamin A, vitamin B1, and zinc. - Tests and Diagnostics: - EKG: Normal. Coding Level of Care Code New Pt Prev Care 18-39yr(32442 Add On Preventative Visit Only Diagnoses Annual physical exam Z00.00 LUQ abdominal pain R10.12 Vitamin D deficiency E55.9 Fatigue R53.83 Cold extremities R20.9 Varicose veins of both lower extremities I83.93 Healthcare maintenance Z00.00 Additional Codes MARTIN-7 Assessment Billing - MARTIN-7 Assessment Tool: MARTIN-7 Assessment 35714 ([id number]) PHQ-9 - 16396 - PHQ-9 Billing: Yes ([id number]) Time Spent (min) 60 Assessment & Plan Assessment & Plan (1) Annual physical exam: Code(s): Z00.00 - Encounter for general adult medical examination without abnormal findings Category: Medical (2) LUQ abdominal pain: Code(s): R10.12 - Left upper quadrant pain Category: Medical Plan: The patient's intermittent, sharp left upper quadrant pain warrants investigation. Given his history of gastric surgery, gallbladder or pancreatic issues are being considered despite the pain location, as a slightly elevated liver enzyme was noted. An urgent abdominal ultrasound has been ordered and scheduled for today, for which the patient is currently fasting. Labs for amylase and lipase have been added to evaluate the pancreas. The patient will also get a previously ordered chest x-ray. If results are inconclusive, a CT scan may be considered. (3) Vitamin D deficiency: Code(s): E55.9 - Vitamin D deficiency, unspecified Category: Medical Plan: The patient's fatigue is likely multifactorial, related to his history of gastric surgery and low vitamin levels. Lab work confirmed low vitamin D and a low-normal vitamin B12 level. A vitamin B12 injection was administered in the office. A prescription for vitamin D will be sent, and his multivitamin was refilled with instructions to take it daily. Additional labs for vitamins A, B1, and zinc were ordered for a more comprehensive nutritional assessment. (4) Fatigue: Code(s): R53.83 - Other fatigue Category: Medical (5) Cold extremities: Code(s): R20.9 - Unspecified disturbances of skin sensation Category: Medical Plan: The patient reports coldness in his extremities, and some varicose veins were noted on exam. To investigate a possible underlying vascular issue, a referral will be made to Vascular Surgery for further evaluation. (6) Varicose veins of both lower extremities: Code(s): I83.93 - Asymptomatic varicose veins of bilateral lower extremities Category: Medical (7) Healthcare maintenance: Code(s): Z00.00 - Encounter for general adult medical examination without abnormal findings Category: Medical Plan: This visit serves as the patient's annual physical examination. He received a seasonal influenza vaccine during the visit. A note was provided to allow him to return to work on Monday. Plan Plan Patient was informed and verbally consented to the use of an ambient scribe for clinic note documentation during this visit. 1. Left Upper Quadrant Abdominal Pain The patient's intermittent, sharp left upper quadrant pain warrants in vestigation. Given his history of gastric surgery, gallbladder or pancreatic issues are being considered despite the pain location, as a slightly elevated liver enzyme was noted. An urgent abdominal ultrasound has been ordered and scheduled for today, for which the patient is currently fasting. Labs for amylase and lipase have been added to evaluate the pancreas. The patient will also get a previously ordered chest x-ray. If results are inconclusive, a CT scan may be considered. 2. Vitamin Deficiency And Fatigue Post-Gastric Bypass The patient's fatigue is likely multifactorial, related to his history of gastric surgery and low vitamin levels. Lab work confirmed low vitamin D and a low-normal vitamin B12 level. A vitamin B12 injection was administered in the office. A prescription for vitamin D will be sent, and his multivitamin was refilled with instructions to take it daily. Additional labs for vitamins A, B1, and zinc were ordered for a more comprehensive nutritional assessment. 3. Cold Extremities And Varicose Veins The patient reports coldness in his extremities, and some varicose veins were noted on exam. To investigate a possible underlying vascular issue, a referral will be made to Vascular Surgery for further evaluation. 4. Health Maintenance This visit serves as the patient's annual physical examination. He received a seasonal influenza vaccine during the visit. A note was provided to allow him to return to work on Monday. Discussion Notes I explained to the patient that his intermittent abdominal pain requires further investigation. We reviewed his lab results, highlighting the slightly elevated liver enzyme and good cholesterol levels. I recommended an urgent abdominal ultrasound to evaluate his gallbladder and other organs, noting that this can be a post-gastric surgery complication, and informed him the appointment is for today. We discussed his fatigue and low vitamin levels, and I administered a B12 injection and will prescribe vitamin D. I reinforced the importance of taking his multivitamin daily. For his symptoms of cold extremities, I informed him I would refer him to a vascular specialist. We also discussed and administered the flu shot and designated this visit as his annual physical. The patient agreed with the plan. Orders: Orders C Reactive Protein Today Z00.00 - Encounter for general adult medical examination without abnormal findings Comprehensive [place]. Panel Fast Today Z00.00 - Encounter for general adult medical examination without abnormal findings Erythrocyte Sedimentation Rate Today Z00.00 - Encounter for general adult medical examination without abnormal findings Magnesium Today Z00.00 - Encounter for general adult medical examination without abnormal findings TSH reflex Free T4 Today Z00.00 - Encounter for general adult medical examination without abnormal findings Creatine Kinase Total Today Z00.00 - Encounter for general adult medical examination without abnormal findings Zinc Today Z00.00 - Encounter for general adult medical examination without abnormal findings Influenza [id number] Immunization Today Z23 - Encounter for immunization Complete Blood Count Auto Diff Today Z00.00 - Encounter for general adult medical examination without abnormal findings Lipid Panel Today Z00.00 - Encounter for general adult medical examination without abnormal findings Hemoglobin A1c Today Z00.00 - Encounter for general adult medical examination without abnormal findings PSA,Total (Free>4and<10) Today Z00.00 - Encounter for general adult medical examination without abnormal findings UA CC w/rflx Micro + Cult Today Z00.00 - Encounter for general adult medical examination without abnormal findings Vitamin B12 and Folate Today Z00.00 - Encounter for general adult medical examination without abnormal findings Vitamin D 25-OH Total Today Z00.00 - Encounter for general adult medical examination without abnormal findings US abdomen complete Today R10.9 - Unspecified abdominal pain AMB Vitamin B12 Injection Practice Supplied Today E53.8 - Deficiency of other specified B group vitamins, E55.9 - Vitamin D deficiency, unspecified, Z98.84 - Bariatric surgery status Referrals Vascular Surgery Referral I83.93 - Asymptomatic varicose veins of bilateral lower extremities, R20.9 - Unspecified disturbances of skin sensation Medications: New multivitamin with folic acid 400 mcg (Daily-Alfredito (with folic acid)) 1 tab PO DAILY 90 tabs 3RF cholecalciferol (vitamin D3) 25 mcg PO DAILY 90 caps 3RF E55.9 - Vitamin D deficiency, unspecified, Z98.84 - Bariatric surgery status Patient Instructions: Patient Instructions - You have an appointment for an abdominal ultrasound today at 3:30 p.m. You must continue to fast, meaning no food or drink. - Please arrive 15 minutes early to register at the outpatient department before your ultrasound. - You should also get the chest X-ray that was ordered for you while you are at the hospital. - Continue taking your daily multivitamin. - A prescription for Vitamin D to help with your low levels will be sent to your pharmacy. - You received a Vitamin B12 shot for your low levels and a flu shot today. - We will refer you to a vascular (blood vessel) specialist to check on the circulation and cold feeling in your extremities. Their office should call you to schedule an appointment. - You have a work note that allows you to return to work on Monday.
[2025-07-25 11:13] VITALS: BP 123/60; PULSE 85; RESP 14; TEMP 36.4; O2SAT 96; BMI 37.9
== END 2025-07-25 12:00 | disposition home or self-care (01) ==
LOC: HO.HMCSH 11:02
PROVIDERS: PCP Physician Assistant Medical; Visit Provider Physician Assistant Medical
DX: Z00.00 Encounter for general adult medical examination without abnormal findings (principal); R10.12 Left upper quadrant pain; E55.9 Vitamin D deficiency, unspecified; R53.83 Other fatigue; R20.9 Unspecified disturbances of skin sensation; I83.93 Asymptomatic varicose veins of bilateral lower extremities; E53.8 Deficiency of other specified B group vitamins; Z98.84 Bariatric surgery status; Z23 Encounter for immunization

== ENCOUNTER 2025-07-25 15:01 | Outpatient (REF) | payer OTHER, SELFPAY ==
--- NOTE | ~2025-07-25 | US_ITS ---
EXAMINATION: US ABDOMEN COMPLETE CLINICAL INFORMATION: Abdominal pain.. COMPARISON: None available. TECHNIQUE: Real-time ultrasound of the abdomen using grayscale technique. FINDINGS: PANCREAS: No peripancreatic fluid collections. ABDOMINAL AORTA: The proximal, mid, and distal segments are normal in caliber. INFERIOR VENA CAVA: Visualized portions are normal. LIVER: Liver measures 17 cm. Coarse echotexture. No nodular surface. Portal vein is patent with normal hepatopedal flow direction. No solid or cystic lesion. No intrahepatic biliary ductal dilatation. GALLBLADDER: Fluid-filled nondistended. No pericholecystic fluid collection or gallbladder wall thickening. COMMON BILE DUCT: 4 mm. RIGHT KIDNEY: 10 cm. Normal echotexture. Renal cortical thickness is normal. No hydronephrosis. No solid or cystic lesion.. LEFT KIDNEY: 11 cm. Normal echotexture. Renal cortical thickness is normal. No hydronephrosis. No solid or cystic lesion.. SPLEEN: 13 cm. No solid or cystic lesion.. FREE FLUID: None. US/US abdomen complete IMPRESSION: Hepatosplenomegaly. No ascites. No cholelithiasis or choledocholithiasis. No hydronephrosis or gross nephrolithiasis. Electronically signed by: Calixto Tamayo MD 07/25/2025 03:53 PM EST
--- NOTE | ~2025-07-25 | XR_ITS ---
EXAMINATION: XR CHEST CLINICAL INFORMATION: R07.9 - Chest pain, unspecified COMPARISON: August 09, 2019 TECHNIQUE: PA and lateral views. FINDINGS: No consolidation, pleural fissure pneumothorax. Cardiomediastinal silhouette size is normal. Osseous structures are intact. XR/XR chest 2V IMPRESSION: No acute airspace disease. Electronically signed by: Calixto Tamayo MD 07/25/2025 04:00 PM EST
== END 2025-07-25 15:02 | disposition home or self-care (01) ==
LOC: HO.US 15:01
PROVIDERS: Absent Provider Family Medicine; PCP Physician Assistant Medical; Visit Provider Physician Assistant Medical
DX: R10.9 Unspecified abdominal pain (principal); R07.9 Chest pain, unspecified
CPT/HCPCS: 71046; 76700

== ENCOUNTER → 2025-07-25 15:06 | Outpatient (BNV) | payer OTHER, SELFPAY | PROVIDERS: Absent Provider Family Medicine; PCP Physician Assistant Medical; Visit Provider Radiology Diagnostic Radiology | DX: R16.2 Hepatomegaly with splenomegaly, not elsewhere classified (principal); R07.9 Chest pain, unspecified | CPT/HCPCS: 71046; 76700 ==

== ENCOUNTER 2025-08-04 18:05 | Emergency (ER) | payer OTHER, SELFPAY ==
--- NOTE | ~2025-08-04 | XR_ITS ---
CLINICAL HISTORY: SOB 1 view chest x-ray Comparison: 07/25/2025 03:55 PM EST Findings: Lungs are clear without acute infiltrates. No pneumothorax. Heart size normal. No acute bony abnormalities. Impression: No acute processes This document has been electronically signed by: Nicolas Emery MD on 08/04/2025 19:08:52
[2025-08-04 18:22] VITALS: BP 150/73; PULSE 106; RESP 18; TEMP 36.8; O2SAT 100; BMI 37.9
--- NOTE | 2025-08-04 18:23 | ED_ITS ---
HPI - General Adult General Chief complaint: Allergic Reaction Stated complaint: SOB, Hives, allergic raction CP Time Seen by Provider: 08/04/25 18:35 History of Present Illness ED Provider: Nicole TREVINO narrative: The patient is a 19-year-old male who has a history of seasonal allergies. Last summer he started receiving allergy shots at [facility] in [place]. Today he received a round of allergy shots at the office. He was monitored for half an hour without any symptoms. However after leaving the doctor's office he developed a sense of itchiness and hives around his face and neck and also started to feel some chest discomfort and a sense of shortness of breath. He came to the emergency room for this reason. The patient has never had any reaction to allergy shots like this before. He has never had an allergic reaction that required an EpiPen in the past. Related Data Home Medications ?Medication ?Instructions ?Recorded ?Confirmed loratadine 10 mg tablet 10 mg PO DAILY PRN 07/24/25 07/25/25 triamcinolone acetonide 55 mcg 2 spray intranasal ALEXEI Y 07/24/25 07/25/25 nasal spray aerosol Previous Rx's ?Medication ?Instructions ?Recorded ibuprofen 600 mg tablet 600 mg PO Q8H PRN pain #20 t abs 10/16/20 cholecalciferol (vitamin D3) 25 25 mcg PO DAILY #90 ca ps 07/25/25 mcg (1,000 unit) capsule multivitamin with folic acid 400 1 tab PO DAILY #90 ta bs 07/25/25 mcg tablet (Daily-Alfredito (with folic acid)) epinephrine 0.3 mg/0.3 mL 0.3 mg (0.3 mL) IM Q10M PRN 08/04/25 injection, auto-injector (EpiPen hypersensitivity reac tion #2 ea 2-Justin) Allergies Allergy/AdvReac Type Severity Reaction Status Date / Time sulfamethoxazole (From Allergy Unknown RASH Verified 08/04/25 18:24 BACTRIM) trimethoprim (From BACTRIM) Allergy Unknown RASH Verified 08/04/25 18:24 Review of Systems Review of Systems: Yes all other systems are reviewed and are negative PMFSH Past Medical History Medical History (Updated 08/05/25 @ 00:01 by Damon Cooley) Healthcare maintenance Fatigue Annual physical exam Cold extremities Varicose veins of both lower extremities B12 deficiency Vitamin D deficiency Abdominal pain LUQ abdominal pain General medical exam Surgical History History of gastric bypass Family History Family History Father Pre-diabetes Mother BP (high blood pressure) Social History Social History Housing: House Patient Tobacco Use Status: Never used Tobacco Advance Directives: No Advance Directives Information Provided: No Do you have a plan to hurt others: No Plan service: No Current occupational status: employed Current occupation: [employer] employee Cognitive needs: No Hearing needs: No Vision needs: Yes (Rx glasses) Physical Exam ED Vital Signs: Vital Signs - 24 hr 08/04/25 21:36 Temperature 98.8 F Pulse Rate 88 Respiratory Rate 16 Blood Pressure 143/76 H Pulse Oximetry 100 Oxygen Delivery Method Room Air BMI result Body Mass Index 37.9 Const Other: The patient is awake and alert. He does not appear in obvious distress. He may sound mildly congested but he does not exhibit any signs of respiratory difficulty. Orientation/consciousness: patient oriented x3 HENMT Other: The face is symmetrical. ?Mucous membranes moist. Eyes Other: Pupils are round equal, conjunctivae are clear, extraocular movements intact Neck Other: No stridor Neck: Yes no meningeal signs Resp Other: You do not appreciate any increased work of breathing or wheezing. Effort & Inspection: normal respiratory effort Auscultation: clear to auscultation bilaterally Cardio Rate: regular rate Rhythm: regular rhythm Heart sounds: S1 normal heart sound present and S2 normal heart sound present Skin Other: Possibly some slight redness to the skin around the neck but no definite or discrete hives. Neuro General: patient oriented x3, moves all extremities, no meningeal signs, no focal motor deficits and CN's II-XI intact bilaterally Extrem Other: No peripheral edema Course Course Course Narrative: Rapid medical examination performed in triage by Shari Delgado PA-C: Patient is a 19 year old male presenting to the emergency department with a possible allergic reaction to his allergy shots. Patient states that he received allergy shots earlier today and has continued to feel unwell with a sore throat / rash / and swelling. Detailed physical exam and review of systems are deferred to the production sampler. Labs, imaging, swabs ordered. plant wrapper aware. Medications Administered Discontinued Medications Generic Name Dose Route Start Last Admin Trade Name Freq PRN Reason Stop Dose Admin Epinephrine 0.3 mg 08/04/25 18:40 08/04/25 19:10 Epinephrine 1 Mg/Ml Vial IM 08/04/25 18:41 0.3 mg STAT STA Administration Sodium Chloride 1,000 mls @ 999 mls/hr 08/04/25 18:30 08/04/25 18:58 Ns IV 08/04/25 19:30 Not Given .Q1H1M [facility] Medical Decision Making Medical Decision Making [facility] Narrative: The patient is a 19-year-old male who presents with a allergic symptoms after he left the allergy office. He had received therapeutic allergy shots and has been observed for over an hour before discharge. He developed symptoms following discharge. Here he did not look in acute distress but he was given an IM injection of epinephrine with resolution of his symptoms. I do not think any additional intervention is required. He was feeling much better. He will be discharged with a prescription for EpiPen and should follow up with his allergy doctor. Lab Data Labs: Lab Results 08/04/25 Range/Units 19:16 Influenza Type A (PCR) NEGATIVE (Negative) Influenza Type B (PCR) NEGATIVE (Negative) RSV RNA Qual (PCR) NEGATIVE (Negative) SARS-CoV-2 RNA (RT-PCR) NEGATIVE (Negative) Discharge Plan Discharge Clinical Impression: Allergic reaction Patient Disposition: Home, Self-Care Instructions: General Allergic Reaction (ED) Additional Instructions: You were given an EpiPen here in the emergency room to help with the what seemed to be some allergic symptoms. This seems to have helped. I have sent a prescription for additional EpiPens to your pharmacy, the [facility] on [facility] in [place]. Please contact the allergy office tomorrow to discuss this further. If you have worsening symptoms please use the EpiPen and return to the emergency room. Prescriptions: New epinephrine [EpiPen 2-Justin] 0.3 mg/0.3 mL auto-injector 0.3 mg IM Q10M PRN (Reason: hypersensitivity reaction) Qty: 2 0RF Rx Instructions: for 2 doses No Action ibuprofen 600 mg tablet 600 mg PO Q8H PRN (Reason: pain) Qty: 20 0RF triamcinolone acetonide 55 mcg aerosol,spray 2 spray intranasal DAILY loratadine 10 mg tablet 10 mg PO DAILY PRN cholecalciferol (vitamin D3) 25 mcg (1,000 unit) capsule 25 mcg PO DAILY Qty: 90 3RF multivitamin with folic acid [Daily-Alfredito (with folic acid)] 400 mcg tablet 1 tab PO DAILY Qty: 90 3RF Interventions: ED Discharge Assessment Last Done: 08/04/25 21:36 Discharge Date/Time: 08/04/25 21:37 Print Language: English
--- OUTSIDE RECORDS SUMMARY | 2025-08-04 19:04 | XMS_ITS | Clinical Summary ---
Author Organization [facility] Address [address] [place] [address] Care Team Providers Care Sewage Plant Operator Name Role Phone Valentine Presley MD Primary Care Provider [phone] Source Comments Please note that some or [...] so, obtain the minor's consent prior to disclosure.[facility] Allergies Active Allergy Reactions Criticality Noted [...] Info) Description 09/26/2025 9:30 AM EST Nutrition [facility], Clinical Nutrition [address] [place] [address] 12/31/2025 10:45 AM EDT Office Visit [facility] Gastroenterology, [address] [phone] Angela Hernandez APRN [address] [place], [place] [phone] 01/20/2026 11:00 AM EDT Office Visit [facility], Weight Management [address] [address] John Ryan PA [address] [place], [place] [phone] Health Maintenance Due Date Last Done Comments DTaP/TDAP/TD VACCINES (1 - Tdap) 2012 ADOLESCENT HIV SCREENING 2018 COVID-19 Vaccine ( season) 2025 01/12/2021, 12/22/2020 INFLUENZA (#1) 2025 NIRSEVIMAB VACCINES UNDER 8 MONTHS Aged Out No longer eligible b ased on patient's age to complete this topic Medical Devices Implanted Type Area Loan Expeditor Device Identifier Shelf Expiration Date Model / Serial / Lot Tristaple 2.0 Black Reinforced - [id number] Implanted:Qty: 1 on 06/02/2022 by Della Kenyon MD at [facility] Staple N/A: Stomach COVIDIEN 11/04/2024 [id number] XT / / [id number] Tristaple 2.0 Black Reinforced - [id number] Implanted:Qty: 1 on 06/02/2022 by Della Kenyon MD at [facility] Staple N/A: Stomach COVIDIEN 09/06/2024 [id number] XT / / [id number] Insurance [facility] [employer] PLAN [facility] MEDICAID [facility] [employer] ([employer] PLAN Care Teams Sewage Plant Operator Relationship Specialty Start Date End Date Valentine Presley MD [address] [place] [id number] PCP - General General Pediatrics 06/21/21
--- OUTSIDE RECORDS SUMMARY | 2025-08-04 19:05 | XMS_ITS | Encounter Summary ---
Author Organization [facility] Address [address] [place] [address] Phone Care Team Providers Care Entry Engineer Name Role Phone Valentine Presley MD Primary Care Provider [phone] Encounter Details Date Type Department Care Team (Late st Contact Info) Description 03/23/2017 Conversion Encounter [facility] [address] [place] [address] Social History Tobacco Use Types Packs/Day Years [...] on filedocumented in this encounter Care Teams Entry Engineer Relationship Specialty Start Date End Date Valentine Presley MD [address] [place] [address] PCP - General Pediatrics 02/06/19 documented as of this encounter
--- OUTSIDE RECORDS SUMMARY | 2025-08-04 19:05 | XMS_ITS | Encounter Summary ---
Author Organization [facility] Address [address] [place], [place] [phone] Phone Care Team Providers Care Assistant Bookkeeper Name Role Phone Valentien Presley MD Primary Care Provider [phone] Encounter Details Date Type Department Care Team (Late st Contact Info) Description 2016 Documentation [facility] [address] [place] [address] Family Medicine, Physician [address] [place], [place] [id number] Social History Tobacco Use Types Packs/Day Years [...] on filedocumented in this encounter Care Teams Assistant Bookkeeper Relationship Specialty Start Date End Date Valentine Presley MD [address] [place] [address] PCP - General Pediatrics 02/06/19 documented as of this encounter
--- OUTSIDE RECORDS SUMMARY | 2025-08-04 19:05 | XMS_ITS | Clinical Summary ---
Author Organization [facility] Address [address] [place] [address] Phone Care Team Providers Care Air Pollution Inspector Name Role Phone Valentine Presley MD Primary Care Provider [phone] Allergies Active Allergy Reactions Criticality Noted Date [...] NAFLD with liver fibrosis. Followed closely by [facility] weight management program - Last Specialist Visit: 12/21/2023 (age 18yr): [facility] Jan is a 18 y.o. 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 Since undergoing sleeve gastrectomy in 2021 he has had a significant reduction in his BMI, which is reflected in the normalization of his liver enzymes and improved Fibroscan findings. ' Follow up 1 year. 12/25/2024 [facility] GI Fibroscan showed significant increase in fatty change. Follow up with weight managemet, continue with healthy choices. Detailed History and Chronology of care: 06/10/2021 (age 15yr 8mo): ALT 152. Likely fatty liver (NAFLD). Will check ultrasound and then refer to NAFLD clinic at [facility] or [facility]. 06/18/2021 (age 15yr 8mo): Liver U/S confirms fatty liver. Referred to NAFLD clinic today. . 09/21/2021: MR elastography shows Mean liver stiffness of 3.1 kPa consistent with Stage 1 to 2 Fibrosis. Referred to weight management by GI. 12/18/2021 (age 16yr 2mo): Normal biliary ultrasound 03/14/2022: Continues to follow with liver clinic at [facility] Assessment & Plan (09/09/2022 5:39 PM EST): 09/09/2022 (age 16yr 11mo): See problem of obesity for details. NAFLD with liver fibrosis. Followed closely by [facility] weight management program Assessment & Plan (06/18/2021 10:47 AM EST): 06/18/2021 (age 15yr 8mo): Liver U/S confirms fatty liver. Referred to NAFLD clinic today. Assessment & Plan (06/10/2021 5:22 PM EDT): 06/10/2021 (age 15yr 8mo): ALT 152. Likely fatty liver (NAFLD). Will check ultrasound and then refer to NAFLD clinic at [facility] or [facility]. Hyperinsulinemia 06/10/2021 Overview (09/09/2022): 09/09/2022 (age 16yr 11mo): See problem of obesity for details, followed closely by [facility] weight management. Detailed History and Chronology of care: 06/10/2021 (age 15yr 8mo): Insulin 50.8, nl HGB A1C. Was referred to weight management at recent well visit. Assessment & Plan (12/01/2023 12:18 PM EDT): 12/01/2023 (age 18yr): See problem of obesity for details, followed closely by [facility] weight management. Assessment & Plan (09/09/2022 5:40 PM EST): 09/09/2022 (age 16yr 11mo): See problem of obesity for details, followed closely by [facility] weight management. Borderline high cholesterol 06/10/2021 Overview (09/09/2022): 09/09/2022 (age 16yr 11mo): See problem of obesity for details. Followed closely by [facility] weight management Assessment & Plan (12/01/2023 12:18 PM EDT): 12/01/2023 (age 18yr): See problem of obesity for details. Followed closely by [facility] weight management Assessment & Plan (09/09/2022 2:13 PM EST): 09/09/2022 (age 16yr 11mo): See problem of obesity for details. Followed closely by [facility] weight management Seasonal allergic rhinitis due to [...] ducts are clean 10. Consider air purifiers ([employer] makes Good reasonably priced models) 11. Have [...] Will plan to reschedule to with the hull line crew member. Assessment & Plan (12/01/2023 12:17 PM EDT): [...] (age 18yr) - 02/05/25 Followed closly by [facility] weight management clinic. 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 S/p Bariatric surgery 05/2022. NAFLD improving. Detailed History and Chronology of care: 06/10/2021 (age 15yr 8mo): Severe obesity. Elevated ALT, hyperinsulinemia, borderline cholesterol (see individual problems) [facility] weight management not taking new pts. Mom will call [facility] and let me know how it goes. 09/21/2021: MR elastography shows Mean liver stiffness of 3.1 kPa consistent with Stage 1 to 2 Fibrosis. Referred to weight management by GI at [facility]. 11/17/2021: Sleep study normal. 11/26/2021: [facility] weight management is Starting Liraglutide injections for weight loss. 03/07/2022: Stress test normal, continues with weight management at [facility], likely will have bariatric surgery in 3-4 months. 06/02/2022: Had bariatric surgery at [facility] 12/14/2022 [facility] irina CASTRO improved - fibrosis from stage 1-2 to 0-1. Assessment & Plan (12/01/2023 12:17 PM EDT): 12/01/2023 (age 18yr): Followed closly by [facility] weight management clinic. 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 S/p Bariatric surgery 05/2022. NAFLD improving. Assessment & Plan (09/09/2022 5:39 PM EST): 09/09/2022 (age 16yr 11mo): Followed closly by [facility] weight management clinic. 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 S/p Bariatric surgery 05/2022. Assessment & Plan (06/10/2021 5:25 PM EDT): 06/10/2021 (age 15yr 8mo): Severe obesity. Elevated ALT, hyperinsulinemia, borderline cholesterol (see individual problems) [facility] weight management not taking new pts. Mom will call [facility] and let me know how it goes. [...] as much since the family moved to [facility]. Has opportunity to play 2 [...] D/w pt- did not follow through with [facility] program but would be really [...] of obesity for details, followed closely by [facility] weight management. Detailed History and Chronology of care: 01/01/2021 (age 15yr 3mo): noted today, follow up 2-3 weeks. 06/08/2021 (age 15yr 8mo): High BP again today, follow up 2-3 weeks. Assessment & Plan (09/09/2022 5:40 PM EST): 09/09/2022 (age 16yr 11mo): BP normal today. See problem of obesity for details, followed closely by [facility] weight management. Assessment & Plan (01/01/2021 12:49 [...] Type Department Care Team Description 05/14/2025 Telephone [facility] [address] [place] [address] Valentine Presley MD Nutrition Form [...] Vaccine (1 of 2 - Standard) 2021 COVID-19 Vaccine (3 - 2024-2 6 season) 2025 01/12/2021, 12/22/2020 DTaP,Tdap,and Td Vaccines (7 - Td or Tdap) 05/02/2027 05/02/2017, 12/07/2010, 01/10/2007, Additional history exists Hepatitis B Vaccines Completed 04/06/2006, 02/09/2006, 2005 HIB Vaccines Completed 01/10/2007, 0808/2005, 02/09/2006, Additional history exists Pneumococcal Vaccine Completed 01/10/2007, 04/06/2006, 02/09/2006, Additional history exists Hepatitis A Vaccines Completed 04/30/2007, 10/04/19 07 IPV Vaccines Completed 12/07/2010, 03/09, 02/09/2006, Additional history exists MMR Vaccines Completed 12/07/2010, 09/08, 10/04/2006 Varicella Vaccines Completed 12/07/2010, 10/04/2006 HPV Vaccines Completed 05/07/2018, 05/02/2017 Meningococcal Vaccine Completed 09/09/2022, 017 Influenza Vaccines Completed 07/25/2025, 0 09/09/2022, 06/08/2021, Additional history exists Insurance [employer] NON PCC [facility] A[facility] Care Teams Air Pollution Inspector Relationship Specialty Start Date End Date Valentine Presley MD [address] [place] [id number] PCP - General Pediatrics 02/06/19
--- OUTSIDE RECORDS SUMMARY | 2025-08-04 19:05 | XMS_ITS | Clinical Summary ---
Author Organization [facility] Address [address] [place] [address] Phone Care Team Providers Care Petrophysical Engineer Name Role Phone Physician, No Pcp Primary [...] file Growth Chart Information Age Height Weight Oomtpn-[id number]-[id number] th Percentile BMI Percentile Head Circum Head Circum Percentile Date 19 years 170.2 cm (5' 7.01 ) 102 kg (225 lb) 97.85%* 2024 18 years 170.2 cm (5' 7.01 ) 102 kg (225 lb) 97.87%* 2024 18 years 170.2 cm (5' 7 ) 102 kg (225 lb) 97.88%* 2024 * [facility] (Boys, 2-20 Years) Last Filed Vital Signs [...] to complete this topic Insurance Care Teams Petrophysical Engineer Relationship Specialty Start Date End Date Physician, No Pcp PCP - General 09/28/24
[2025-08-04 19:10] VITALS: BP 147/75; PULSE 88
--- NOTE | 2025-08-04 19:23 | PC.NURSE ---
this RN assumed care of this pt @1900, pt noted to be laying semi carbajal in hospital stretcher , no respiratory or apparent distress noted at this time, pt medicated per MAR, no needs made aware at this time.
[2025-08-04 20:06] LABS: Resp Syncy Virus RNA Qual PCR NEGATIVE (Negative); SARS COV2 PCR INHOUSE NEGATIVE (Negative)
--- NOTE | 2025-08-04 20:25 | PC.NURSE ---
pt noted to be resting quietly in hospital stretcher, family member at the bedside, no apparent respiratory distress noted
[2025-08-04 21:36] VITALS: BP 143/76; PULSE 88; RESP 16; TEMP 37.1; O2SAT 100
== END 2025-08-04 21:37 | disposition home or self-care (01) ==
PROVIDERS: Physician Assistant Medical; Emergency Provider Emergency Medicine; PCP Physician Assistant Medical
DX: R06.02 Shortness of breath (principal); L50.0 Allergic urticaria; R07.89 Other chest pain; Z79.899 Other long term (current) drug therapy; Z03.818 Encounter for observation for suspected exposure to other biological agents ruled out
CPT/HCPCS: 71045; 87637; 96360; 96372; 99282; 99284; J0165

== ENCOUNTER → 2025-08-04 18:25 | Outpatient (BNV) | payer OTHER, SELFPAY | PROVIDERS: Emergency Provider Emergency Medicine; PCP Physician Assistant Medical; Visit Provider Radiology Diagnostic Radiology | DX: R06.02 Shortness of breath (principal) | CPT/HCPCS: 71045 ==